=== PATIENT | female | born 1985 | race African-American/Black ===

== ENCOUNTER 2019-09-18 08:49 | Emergency (ER) | payer BC ==
[~2019-09-18] VITALS: Ht 167.6 cm; Wt 90.3 kg
[2019-09-18] MEDS ORDERED: PROAIR HFA8.5 GM INH (09:14)
[2019-09-18] MEDS ORDERED: LOESTRIN FE 1-1 EACH PO (09:14)
[2019-09-18 09:51] LABS: INFLUENZA A ANTIGEN Negative (Negative); INFLUENZA B ANTIGEN Negative (Negative)
[2019-09-18] MEDS ORDERED: ZOFRAN ODT4 MG DISSOLVE (09:57)
[2019-09-18] MEDS ORDERED: TAMIFLU75 MG PO (09:57)
[2019-09-18 10:26] VITALS: BP 134/112
== END 2019-09-18 10:26 | disposition home or self-care (01) ==
LOC: M.ERS 08:49
PROVIDERS: Emergency Medicine Emergency Medical Services
DX: J11.1 Influenza due to unidentified influenza virus with other respiratory manifestations (principal); J45.909 Unspecified asthma, uncomplicated; F17.210 Nicotine dependence, cigarettes, uncomplicated; Z88.0 Allergy status to penicillin; Z88.8 Allergy status to other drugs, medicaments and biological substances